=== PATIENT | male | born 1935 | race Caucasian/White ===

== ENCOUNTER 2022-12-14 11:39 | Day surgery (SDC) | payer OTHER ==
[~2022-12-14] VITALS: Ht 167.6 cm; Wt 66.8 kg
[2022-12-14] MEDS ORDERED: LOSA25 PO (12:37)
[2022-12-14] MEDS ORDERED: FAMO20 PO (12:37)
[2022-12-14] MEDS ORDERED: OMEP20ER PO (12:37)
[2022-12-14] MEDS ORDERED: TAMS.4ER PO (12:37)
[2022-12-14] MEDS ORDERED: AMLO5 PO (12:37)
--- NOTE | 2022-12-14 12:42 | NUR ---
12/14/22 1242 WERNER WOODARD T:1242 P: 1243 CALL LIGHT IN REACH, PRE OP TEACHING PERFORMED
== END 2022-12-14 13:40 | disposition home or self-care (01) ==
LOC: ORSCSDS 11:39
DX: H25.12 Age-related nuclear cataract, left eye (principal); Z53.9 Procedure and treatment not carried out, unspecified reason
CPT/HCPCS: 93005; 93010; J2250; J3010; J3301; J7040

== ENCOUNTER 2023-07-12 09:36 | Day surgery (SDC) | payer OTHER ==
[~2023-07-12] VITALS: Ht 167.6 cm; Wt 64.0 kg
[~2023-07-12 09:36] MED LIST: AMLO5 PO; FAMO20 PO; LOSA25 PO; OMEP20ER PO; TAMS.4ER PO
[2023-07-12] MEDS ORDERED: ATOR10 PO (10:03)
[2023-07-12 10:57] VITALS: BP 117/72
== END 2023-07-12 11:25 | disposition home or self-care (01) ==
LOC: ORSCSDS 09:36
PROVIDERS: Ophthalmology
PROC: 08RK3JZ Replacement of Left Lens with Synthetic Substitute, Percutaneous Approach (ICD-10-PCS; principal; 2023-07-12 11:00)
DX: H25.12 Age-related nuclear cataract, left eye (principal); Z96.1 Presence of intraocular lens; H35.30 Unspecified macular degeneration; I10 Essential (primary) hypertension; K21.9 Gastro-esophageal reflux disease without esophagitis; Z79.899 Other long term (current) drug therapy
CPT/HCPCS: J2250; J3301; J7040; V2632